=== PATIENT | male | born 1970 | race African-American/Black ===

== ENCOUNTER 2017-02-24 09:12 | Emergency (ER) | payer MEDICAID ==
[~2017-02-24] VITALS: Ht 182.9 cm; Wt 76.0 kg
[~2017-02-24 09:12] MED LIST: AUGM875T PO; HYDR-3533 PO; IBUP-232 PO
[2017-02-24 09:13] VITALS: BP 140/98; PULSE 84; RESP 15; TEMP 98.1; O2SAT 99
--- NOTE | 2017-02-24 10:36 | PD ---
HPI Chief Complaint: Headache Time Seen by Provider: 10:10 Travel History International Travel<30 days: No Contact w/Intl Traveler<30days: No Traveled to known affect area: No History of Present Illness HPI 46-year-old man who presents to the emergency department complaining of headache. He has got some left sided facial symptoms starting near the TMJ rating down a little bit in the face. Describes both what sounds like clicks as well as Electric shock capping pains in the face. States his symptoms started after he was standing up while picking up an injection and hit the top of his head on a height that was above him. He had the put the NG down immediately and sit down. He felt dazed afterwards. No LOC. No vomiting. No significant headache. He has some tenderness on top of his head that started having his left-sided facial symptoms. He looks otherwise well. No history of previous similar symptoms. No other complaints. History Past Medical History Medical History: Denies Significant Hx Tetanus Vaccination: < 5 Years Social History Alcohol Use: Yes (BEER EVERY OTHER DAY) Tobacco Use: Yes (1/2 PPD) Allergies-Medications (Allergen,Severity, Reaction): Coded Allergies: No Known Allergies (Verified , 02/24/17) Reported Meds & Prescriptions Reported Meds & Active Scripts Active No Active Prescriptions or Reported Medications Review of Systems Except as stated in HPI: all other systems reviewed are Neg Physical Exam Narrative GENERAL: Well-appearing 46 man in no acute distress. SKIN: Focused skin assessment warm/dry. HEAD: Normocephalic. Minimal tenderness on top of his head. EYES: Pupils equal and round. No scleral icterus. No injection or drainage. ENT: No nasal bleeding or discharge. Mucous membranes pink and moist. I don't feel any popping or clicking on the left side of his face. He has normal teeth alignment. TMs are normal. There is no hemotympanum or postauricular hematoma. NECK: Trachea midline. No JVD. Painless range of motion. CARDIOVASCULAR: Regular rate and rhythm. No murmur appreciated. RESPIRATORY: No accessory muscle use. Clear to auscultation. Breath sounds equal bilaterally. MUSCULOSKELETAL: No obvious deformities Data Data Last Documented VS Vital Signs Date Time Temp Pulse Resp B/P (MAP) Pulse Ox O2 Delivery O2 Flow Rate FiO2 02/24/17 09:13 98.1 84 15 140/98 (112) 99 MDM Medical Decision Making Medical Screen Exam Complete: Yes Emergency Medical Condition: Yes Differential Diagnosis Concussion, TMJ problems, trigeminal neuralgia, other Narrative Course Medical decision making 46 left-sided facial pain and tenderness. Seems to be TMJ problems started after he hit the top of his head. He may have some mild concussion symptoms. No evidence of clinically important dramatic brain injury. I don't think he has any major facial trauma either. He did not really hit the side of his face. I think his findings of this another week or so and see if it resolves, not only follow for further evaluation for TMJ problems versus less likely facial nerve paresthesias/neuralgias Diagnosis Primary Impression: Closed head injury Additional Impression: Face pain Additional Instructions: Follow up with her primary doctor in the next 7-10 days. Return to the emergency department for any new or worsening symptoms. Med/Other Pt SpecificInfo: No Change to Meds Scripts No Active Prescriptions or Reported Meds Disposition: 01 DISCHARGE HOME Condition: Stable Miguel Jara MD Feb 24, 2017 10:36
[2017-02-24 10:54] VITALS: BP 130/85; TEMP 97.8
== END 2017-02-24 10:50 | disposition home or self-care (01) ==
LOC: NEPD 09:12
DX: S09.90XA Unspecified injury of head, initial encounter (principal); W22.8XXA Striking against or struck by other objects, initial encounter; R51 Headache; F17.290 Nicotine dependence, other tobacco product, uncomplicated; F10.10 Alcohol abuse, uncomplicated
CPT/HCPCS: 99283